=== PATIENT | male | born 1955 | race Caucasian/White ===

== ENCOUNTER 2021-04-13 17:08 | Emergency (ER) | payer MEDICAID ==
--- OUTSIDE RECORDS SUMMARY | 2021-04-13 17:24 | EXTERNAL MEDICAL SUMMARY RPT | Continuity of Care Document ---
:1955 Demographics Phone Unavailable Preferred Language Unknown Marital Status Unknown Zoroastrian Affiliation Unknown Race Unknown Ethnic Group Unknown Author Organization [facility] Address [address] [id number] Phone Allergies Encounters Medications Problems Results
[2021-04-13] MEDS ORDERED: diltiaZEM INJ 5 MG/ML VIAL IVP STA (19:13)
[2021-04-13 19:32] LABS: BASOPHILS # (AUTO) 0.1 10^3/uL (0.0-0.1); BASOPHILS % (AUTO) 1.1 %; EOSINOPHILS # (AUTO) 0.3 10^3/uL (0.0-0.7); EOSINOPHILS % (AUTO) 2.9 %; HCT - HEMATOCRIT 49.2 % (42.0-52.0); HGB - HEMOGLOBIN 16.5 g/dL (14.0-18.0); LYMPHOCYTES # (AUTO) 2.1 10^3/uL (1.5-3.5); LYMPHOCYTES % (AUTO) 21.3 %; MEAN CORPUSCULAR HEMOGLOBIN 31.8 pg (27.0-31.0); MEAN CORPUSCULAR HGB CONC 33.5 g/dL (32.0-36.0); MEAN CORPUSCULAR VOLUME 94.8 fL (80.0-94.0); MEAN PLATELET VOLUME 9.5 fL (7.4-11.4); MONOCYTES # (AUTO) 0.6 10^3/uL (0.0-1.0); NEUTROPHILS # (AUTO) 6.8 10^3/uL (1.5-6.6); NEUTROPHILS % (AUTO) 68.4 %; PLT - PLATELET COUNT 352 10^3/uL (130-450); RED BLOOD COUNT 5.19 10^6/uL (4.70-6.10); RED CELL DISTRIBUTION WIDTH 12.7 % (12.0-15.0); WHITE BLOOD COUNT 9.9 x10^3/uL (4.8-10.8)
[2021-04-13 19:45] LABS: ALBUMIN/GLOBULIN RATIO 1.3 (1.0-2.2); BILIRUBIN,TOTAL 1.4 mg/dL (0.2-1.0); CALCIUM 9.3 mg/dL (8.5-10.3); CREATININE 1.2 mg/dL (0.6-1.2); POTASSIUM 4.1 mmol/L (3.5-5.0); TOTAL PROTEIN 7.2 g/dL (6.7-8.2)
--- NOTE | 2021-04-13 20:06 | XRAY Report ---
PROCEDURE: Chest 1 View X-Ray INDICATIONS: Chest Pain TECHNIQUE: One view of the chest was acquired. COMPARISON: None FINDINGS: Surgical changes and devices: None. Lungs and pleura: No pleural effusions or pneumothorax. Lungs are clear. Mediastinum: Mediastinal contours appear normal. Heart size is top normal. Bones and chest wall: No suspicious bony lesions. Overlying soft tissues appear unremarkable. IMPRESSION: Top normal heart size. No evidence acute pulmonary process. Reviewed by: Huber Dsouza MD on 04/13/2021 8:04 PM PDT Approved by: Huber Dsouza MD on 04/13/2021 8:04 PM PDT Station ID: [id number]
[2021-04-13] MEDS ORDERED: diltiaZEM CD 120 MG CAPSULE PO STA (20:19)
[2021-04-13] MEDS ORDERED: LORazepam 1 MG TABLET PO STA (20:20)
[2021-04-13 22:03] VITALS: BP 154/104
[2021-04-13] MEDS ORDERED: APIXABAN 5 MG TABLET PO STA (22:07)
--- NOTE | 2021-04-13 22:09 | ED Physician Documentation ---
PD HPI DYSPNEA - Stated complaint Stated Complaint: SOA/STUFFINESS - Chief complaint Chief Complaint: Resp - History obtained from History obtained from: Patient - Additional information Additional information: Patient comes emergency department chief complaint of shortness of breath for about 2 weeks. He states that he has not had any chest pain, fever, or chills. He has an occasional dry cough but this is not consistent. No palpitations. The patient states that he has not had anything else associated such as nausea or vomiting. No dizziness. The patient states that the shortness of breath is worse with exertion but that even small movements seem to set off. He states sometimes he will get an episode while just sitting still but if he just takes deep breaths it seems to subside on its own. Patient has a longstanding history of smoking but no formal diagnosis of COPD, because he does not go to the doctor. He states his last cigarette was 2 weeks ago. No other complaints at this time. Review of Systems Ten Systems: 10 systems reviewed and negative Constitutional: reports: Reviewed and negative Eyes: reports: Reviewed and negative Ears: reports: Reviewed and negative Nose: reports: Reviewed and negative Throat: reports: Reviewed and negative Cardiac: reports: Reviewed and negative. denies: Palpitations Respiratory: reports: Dyspnea, Cough GI: reports: Reviewed and negative : reports: Reviewed and negative Skin: reports: Reviewed and negative Musculoskeletal: reports: Reviewed and negative Neurologic: reports: Reviewed and negative Psychiatric: reports: Reviewed and negative Endocrine: reports: Reviewed and negative Immunocompromised: reports: Reviewed and negative PD PAST MEDICAL HISTORY - Past Medical History Past Medical History: No Cardiovascular: None Respiratory: None Musculoskeletal: None - Past Surgical History Past Surgical History: Yes General: Other - Present Medications Home Medications: Ambulatory Orders Medication Instructions Recorded Confirmed Apixaban [Eliquis] 5 mg PO BID #60 tablet 04/13/21 diltiaZEM CD [Cardizem Cd] 240 mg PO DAILY #60 04/13/21 - Allergies Allergies/Adverse Reactions: Allergies Allergy/AdvReac Type Severity Reaction Status Date / Time No Known Drug Allergies Allergy Verified 04/13/21 17:12 - Social History Does the pt smoke?: Yes Smoking Status: Former smoker Does the pt drink ETOH?: Yes ETOH Use: Beer Does the pt have substance abuse?: No - Immunizations Immunizations are current?: Yes PD ED PE NORMAL - Vitals Vital signs reviewed: Yes - General General: Alert and oriented X 3, No acute distress, Well developed/nourished - HEENT HEENT: Atraumatic, PERRL, EOMI, Moist mucous membranes - Neck Neck: Supple, no meningeal sign - Cardiac Cardiac: Other (Tachycardic rate, irregular rhythm, no murmurs.) - Respiratory Respiratory: No respiratory distress, Clear bilaterally - Abdomen Abdomen: Soft, Non tender, Non distended - Derm Derm: Normal color, Warm and dry, No rash - Extremities Extremities: No deformity, No edema, No calf tenderness / cord - Neuro Neuro: Alert and oriented X 3, 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 Nonspecific.) Compare to prior EKG: Old EKG unavailable Computer interpretation: Disagree with computer (No distinct ischemic finding, as there is too much inconsistency in ST segments and any given lead and in multiple leads.) - Labs Labs: Laboratory Tests 04/13/21 04/13/21 04/13/21 19:19 19:19 19:19 WBC 9.9 RBC 5.19 Hgb 16.5 Hct 49.2 MCV 94.8 H MCH 31.8 H MCHC 33.5 RDW 12.7 Plt Count 352 MPV 9.5 Neut # (Auto) 6.8 H Lymph # (Auto) 2.1 [place] # (Auto) 0.6 Eos # (Auto) 0.3 Baso # (Auto) 0.1 Absolute Nucleated RBC 0.00 Nucleated RBC % 0.0 Sodium 136 Potassium 4.1 Chloride 101 Carbon Dioxide 25 Anion Gap 10.0 BUN 21 H Creatinine 1.2 Estimated GFR (MDRD) 61 L Glucose 113 H Calcium 9.3 Total Bilirubin 1.4 H AST 34 ALT 51 Alkaline Phosphatase 76 Troponin I High Sens 64.6 H* B-Natriuretic Peptide Total Protein 7.2 Albumin 4.0 Globulin 3.2 Albumin/Globulin Ratio 1.3 Lipase 20 L 04/13/21 04/13/21 19:19 20:57 WBC RBC Hgb Hct MCV MCH MCHC RDW Plt Count MPV Neut # (Auto) Lymph # (Auto) [place] # (Auto) Eos # (Auto) Baso # (Auto) Absolute Nucleated RBC Nucleated RBC % Sodium Potassium Chloride Carbon Dioxide Anion Gap BUN Creatinine Estimated GFR (MDRD) Glucose Calcium Total Bilirubin AST ALT Alkaline Phosphatase Troponin I High Sens 54.0 H* B-Natriuretic Peptide 1164 H Total Protein Albumin Globulin Albumin/Globulin Ratio Lipase - Rads (name of study) CXR Radiology: Final report received, EMP read indepedently, See rad report (neg) PD MEDICAL DECISION MAKING - ED course Complexity details: reviewed results, re-evaluated patient, considered differential, d/w patient ED course: The patient was found to have a very harsh heart rate, ranging mostly from the 140s to the 160s. He appeared to be in atrial fibrillation with rapid ventricular response, although shortness of breath was really his only complaint and the patient actually looked quite good. He was given a dose of Cardizem 25 mg IV to which she responded very well. He was also given an oral dose of Cardizem. His heart rate did come down into the 90s and while he had occasional bumps up into the lower 100s, he mostly remained below 100 for his heart rate. Laboratory studies were performed and did not surprisingly show an elevated troponin at 64. However, repeat which was done after rate control he been again was found to have dropped down to 54. Patient's BNP was found to be quite elevated but his chest x-ray was negative, and I felt that the elevation BNP was most likely secondary to the effective preload from inadequate throughput, rather than from actual congestive heart failure. The patient reported feeling quite a bit better. His rate remained controlled throughout his stay in the emergency department and I felt that he could go home on oral Cardizem. I have advised him to call primary care first thing the morning and have given him a number of options for this. I have advised him to establish care and so that he can have a full, nonemergent physical appropriate to his gender and age. We have discussed having a low threshold for return, should he experience palpitations, shortness of breath, or chest pain. Departure - Departure Disposition: 01 Home, Self Care Clinical Impression: Atrial fibrillation with RVR Condition: Stable Instructions: Atrial Fibrillation Dc Follow-Up: Nico Rice MD [Provider Admit Priv/Credential] - Mariella Gutierrez MD [Credentialed Staff Provider] - Vicki Oliveira ARNP [Credentialed Staff Provider] - Cecil Randolph MD [Credentialed Staff Provider] - Soledad Monsalve ARNP [Provider Admit Priv/Credential] - Prescriptions: diltiaZEM CD [Cardizem Cd] 240 mg PO DAILY #60 Apixaban [Eliquis] 5 mg PO BID #60 tablet Comments: You were found to be in atrial fibrillation today, as we discussed. You will need to be on both the medicine to control your heart rate and also the blood thinner to keep you from forming clots, as we discussed. It is very important that you follow-up in primary care as soon as possible. We have given you a number of potential options. Please call them first thing in the morning to set up an appointment. Be sure to tell them you were just seen in the emergency department for atrial fibrillation, which is a new diagnosis for you. Please continue your plans to quit smoking. Most likely, with your longstanding history of smoking, you do have some degree of chronic obstructive pulmonary disease, and this is most likely partly responsible for your sense of shortness of breath. There is no evidence of a heart attack today. If you begin noticing that your heart rate is speeding way up again, you will need to return to the emergency department. Discharge Date/Time: 04/13/21 23:08
== END 2021-04-13 23:08 | disposition home or self-care (01) ==
LOC: ED 17:08
DX: I48.91 Unspecified atrial fibrillation (principal); R79.89 Other specified abnormal findings of blood chemistry; Z87.891 Personal history of nicotine dependence
CPT/HCPCS: 36415; 71045; 80053; 83690; 83880; 84484; 85025; 93005; 99284; A9270; J8499

== ENCOUNTER 2021-05-15 13:26 | Outpatient (CLI) | payer MEDICAID ==
[2021-05-15 17:59] LABS: BASOPHILS # (AUTO) 0.1 10^3/uL (0.0-0.1); BASOPHILS % (AUTO) 1.2 %; EOSINOPHILS # (AUTO) 0.2 10^3/uL (0.0-0.7); EOSINOPHILS % (AUTO) 2.5 %; HCT - HEMATOCRIT 47.1 % (42.0-52.0); HGB - HEMOGLOBIN 15.4 g/dL (14.0-18.0); LYMPHOCYTES # (AUTO) 1.4 10^3/uL (1.5-3.5); LYMPHOCYTES % (AUTO) 18.8 %; MEAN CORPUSCULAR HEMOGLOBIN 31.5 pg (27.0-31.0); MEAN CORPUSCULAR HGB CONC 32.7 g/dL (32.0-36.0); MEAN CORPUSCULAR VOLUME 96.3 fL (80.0-94.0); MONOCYTES # (AUTO) 0.5 10^3/uL (0.0-1.0); MONOCYTES % (AUTO) 6.9 %; NEUTROPHILS # (AUTO) 5.3 10^3/uL (1.5-6.6); NEUTROPHILS % (AUTO) 70.3 %; PLT - PLATELET COUNT 336 10^3/uL (130-450); RED BLOOD COUNT 4.89 10^6/uL (4.70-6.10); RED CELL DISTRIBUTION WIDTH 14.4 % (12.0-15.0); WHITE BLOOD COUNT 7.5 x10^3/uL (4.8-10.8)
[2021-05-15 18:22] LABS: ALBUMIN 3.8 g/dL (3.2-5.5); ALBUMIN/GLOBULIN RATIO 1.3 (1.0-2.2); ALKALINE PHOSPHATASE 76 IU/L (42-121); ALT ALANINE AMINOTRANSFERASE 33 IU/L (10-60); AST ASPARTATE AMINOTRANSFERASE 21 IU/L (10-42); BUN - BLOOD UREA NITROGEN 20 mg/dL (6-20); CALCIUM 8.7 mg/dL (8.5-10.3); CARBON DIOXIDE - CO2 25 mmol/L (21-32); CHLORIDE 98 mmol/L (101-111); CHOLESTEROL 180 mg/dL; CREATININE 1.2 mg/dL (0.6-1.2); GFR - MDRD 61 (>89); GLUCOSE 134 mg/dL (70-100); HDL CHOLESTEROL 36 mg/dL; LDL CHOLESTEROL,CALCULATED 120 mg/dL; LDL/HDL RATIO 3.3 (<3.6); POTASSIUM 3.7 mmol/L (3.5-5.0); SODIUM 135 mmol/L (135-145); TOTAL PROTEIN 6.8 g/dL (6.7-8.2); TRIGLYCERIDES 118 mg/dL; VLDL CHOLESTEROL 24 mg/dL
== END 2021-05-15 13:27 | disposition home or self-care (01) ==
LOC: LAB.N 13:26
PROVIDERS: ATTEND Internal Medicine
DX: I11.0 Hypertensive heart disease with heart failure (principal); I50.1 Left ventricular failure, unspecified; Z12.5 Encounter for screening for malignant neoplasm of prostate
CPT/HCPCS: 36415; 80053; 80061; 83721; 83880; 84153; 85025

== ENCOUNTER 2021-06-04 01:06 | Outpatient (CLI) | payer MEDICAID | END 2021-06-04 01:07 | disposition short-term general hospital (02) | LOC: EMS 01:06 | DX: R07.89 Other chest pain (principal); R06.02 Shortness of breath | CPT/HCPCS: A0425; A0427; A0999 ==

== ENCOUNTER 2021-07-13 11:48 | Outpatient (CLI) | payer MEDICAID ==
[2021-07-13 19:10] LABS: CALCIUM 8.9 mg/dL (8.5-10.3); CREATININE 1.4 mg/dL (0.6-1.2); POTASSIUM 4.4 mmol/L (3.5-5.0)
== END 2021-07-13 11:49 | disposition home or self-care (01) ==
LOC: LAB.N 11:48
PROVIDERS: ATTEND Internal Medicine Cardiovascular Disease
DX: I48.19 Other persistent atrial fibrillation (principal)
CPT/HCPCS: 36415; 80048

== ENCOUNTER 2021-12-15 14:39 | Outpatient (CLI) | payer MEDICARE, MEDICAID | END 2021-12-15 14:40 | disposition critical access hospital (66) | LOC: EMS 14:39 | DX: R09.02 Hypoxemia (principal) | CPT/HCPCS: A0425; A0429 ==

== ENCOUNTER 2021-12-15 15:09 | Emergency (ER) | payer MEDICARE, MEDICAID ==
[2021-12-15] MEDS ORDERED: predniSONE 20 MG TABLET PO STA (15:17)
[2021-12-15] MEDS ORDERED: ALBUTEROL 1 PUFF INH STA (15:18)
--- NOTE | 2021-12-15 15:21 | ED Physician Documentation ---
History of Present Illness - Stated complaint Stated Complaint: COPD - History obtained from History obtained from: Patient, EMS - History of Present Illness Timing: Today Pain level max: 0 Pain level now: 0 - Additonal information Additional information: Patient is a 66-year-old male who presents to the emergency department after being sent by the clinic today. He had been seen at [place] emergency department 2 days ago and diagnosed with a COPD exacerbation. He was started on an albuterol inhaler but no other medications. He states he has used it a few times. When he was at the clinic today they could not get the pulse ox to read and so they called 911 to have him brought to the emergency department. Patient has no complaints. He states he feels the same as always. Nothing makes it better or worse. No fevers. No chills. No cough. He states that he quit smoking a few weeks ago. Patient is on Eliquis. Has a history of atrial fibrillation. Review of Systems Constitutional: denies: Fever, Chills Throat: denies: Sore throat Cardiac: denies: Chest pain / pressure Respiratory: reports: Dyspnea, Wheezing. denies: Cough GI: denies: Nausea, Vomiting, Diarrhea Skin: denies: Rash Musculoskeletal: denies: Neck pain, Back pain Neurologic: denies: Headache PD PAST MEDICAL HISTORY - Past Medical History Cardiovascular: None Respiratory: None Musculoskeletal: None - Past Surgical History Past Surgical History: Yes General: Other - Present Medications Home Medications: Ambulatory Orders Medication Instructions Recorded Confirmed Apixaban [Eliquis] 5 mg PO BID #60 tablet 04/13/21 diltiaZEM CD [Cardizem Cd] 240 mg PO DAILY #60 04/13/21 Furosemide [Lasix] 20 mg PO DAILY #7 tablet 12/15/21 predniSONE [Deltasone] 10 mg PO [id number] #42 tab 12/15/21 - Allergies Allergies/Adverse Reactions: Allergies Allergy/AdvReac Type Severity Reaction Status Date / Time No Known Drug Allergies Allergy Verified 12/15/21 15:20 - Social History Does the pt smoke?: Yes Smoking Status: Former smoker Does the pt drink ETOH?: Yes Does the pt have substance abuse?: No - Immunizations Immunizations are current?: Yes PD ED PE NORMAL - Vitals Vital signs reviewed: Yes - General General: Alert and oriented X 3, No acute distress - HEENT HEENT: Moist mucous membranes - Neck Neck: Supple, no meningeal sign - Cardiac Cardiac: RRR - Respiratory Respiratory: Other (Diminished breath sounds and wheezing bilaterally) - Abdomen Abdomen: Soft, Non tender, Non distended - Derm Derm: Normal color, Other (Clubbing of the bilateral hands. Decreased cap refill. Normal pulses) - Extremities Extremities: No edema - Neuro Neuro: Alert and oriented X 3 Results - Vitals Vitals: Vital Signs - 24 hr 12/15/21 12/15/21 12/15/21 15:15 15:30 16:08 Temperature 35.9 C L Heart Rate 118 H 92 97 Respiratory 20 26 H 30 H Rate Blood Pressure 98/76 115/85 H O2 Saturation 95 97 Oxygen O2 Source Nasal cannula - EKG (time done) 1612 Rate: Rate (enter#) (97) Rhythm: Atrial fibrillation [place]: Normal QRS: Normal Ischemia: Normal ST segments - Labs Labs: Laboratory Tests 12/15/21 12/15/21 12/15/21 16:00 16:00 16:00 WBC 6.4 RBC 4.65 L Hgb 15.3 Hct 47.3 MCV 101.7 H MCH 32.9 H MCHC 32.3 RDW 17.0 H Plt Count 260 MPV 9.1 Neut # (Auto) 4.6 Lymph # (Auto) 1.1 L [place] # (Auto) 0.6 Eos # (Auto) 0.1 Baso # (Auto) 0.1 Absolute Nucleated RBC 0.00 Nucleated RBC % 0.0 PT 30.4 H INR 2.7 H APTT 31.4 Sodium 137 Potassium 4.5 Chloride 101 Carbon Dioxide 27 Anion Gap 9.0 BUN 27 H Creatinine 1.4 H Estimated GFR (MDRD) 51 L Glucose 70 Calcium 8.5 Total Bilirubin 1.0 AST 30 ALT 37 Alkaline Phosphatase 91 Total Protein 6.3 L Albumin 3.3 Globulin 3.0 Albumin/Globulin Ratio 1.1 - Rads (name of study) cxr Radiology: Final report received, EMP read contemporaneously, See rad report (Cardiomegaly and pulmonary vascular congestion. Moderate right pleural effusion with atelectasis of right middle and lower lobes. No gross pneumothorax. ) PD MEDICAL DECISION MAKING - ED course Complexity details: reviewed results, re-evaluated patient, considered differential, d/w patient ED course: Patient is a 66-year-old male who presents to the emergency department with a moderate right-sided pleural effusion, atelectasis of the right middle and lower lobes. Does not have a history of similar but did have a pleural effusion noted, large, on chest x-ray at [facility] 2 days ago. He is on Eliquis, not having current respiratory distress, therefore I think it is more practical to have this scheduled as an outpatient to be done with interventional radiology for diagnostic thoracentesis. We will place him on a small amount of Lasix to see if we can decrease the size of the effusion. Patient will need close follow-up with his doctor. Patient is not hypoxic here. 95 to 97% on room air. We will also trial on a short course of steroids. He also will continue the albuterol at home. Patient counseled regarding signs and symptoms for which I believe and urgent re-evaluation would be necessary. Patient with good understanding of and agreement to plan and is comfortable going home at this time This document was made in part using voice recognition software. While efforts are made to proofread this document, sound alike and grammatical errors may occur. Departure - Departure Disposition: 01 Home, Self Care Clinical Impression: Pleural effusion, Moderate COPD (chronic obstructive pulmonary disease) Condition: Good Instructions: ED Effusion Pleural Follow-Up: Luis Jarquin MD [Primary Care Provider] - Within 3 Days Prescriptions: predniSONE [Deltasone] 10 mg PO [id number] #42 tab Furosemide [Lasix] 20 mg PO DAILY #7 tablet Comments: Please continue your current medications at home. Please follow-up with your doctor within 3 days to have a thoracentesis scheduled for your right-sided pleural effusion. They will need to do a diagnostic thoracentesis in order to determine the etiology of the effusion. Return if you worsen. Your prescriptions were sent to [facility] in [place]. Discharge Date/Time: 12/15/21 17:59
[2021-12-15] MEDS ORDERED: SODIUM CHLORIDE 0.9% 1,000 ML IV STA ×2 (15:29)
--- NOTE | 2021-12-15 15:30 | XRAY Report ---
PROCEDURE: Chest 1 View X-Ray INDICATIONS: dyspnea TECHNIQUE: One view of the chest was acquired. COMPARISON: 04/13/2021 FINDINGS: Surgical changes and devices: None. Lungs and pleura: Moderate right pleural effusion is seen with atelectasis of right middle and lower lobes. Pulmonary vascular congestion is seen. Mild pulmonary edema is also noted. No gross pneumothor ax. Mediastinum: Mediastinal contours appear normal. Heart size is markedly enlarged. Bones and chest wall: No suspicious bony lesions. Overlying soft tissues appear unremarkable. IMPRESSION: Cardiomegaly and pulmonary vascular congestion. Moderate right pleural effusion with atelectasis of r ight middle and lower lobes. No gross pneumothorax. Reviewed by: Adriano Chen MD on 12/15/2021 3:29 PM PST Approved by: Adriano Chen MD on 12/15/2021 3:29 PM PST Station ID: [id number]
[2021-12-15 16:08] LABS: BASOPHILS # (AUTO) 0.1 10^3/uL (0.0-0.1); BASOPHILS % (AUTO) 1.3 %; EOSINOPHILS # (AUTO) 0.1 10^3/uL (0.0-0.7); EOSINOPHILS % (AUTO) 1.9 %; HCT - HEMATOCRIT 47.3 % (42.0-52.0); HGB - HEMOGLOBIN 15.3 g/dL (14.0-18.0); LYMPHOCYTES # (AUTO) 1.1 10^3/uL (1.5-3.5); LYMPHOCYTES % (AUTO) 16.5 %; MEAN CORPUSCULAR HEMOGLOBIN 32.9 pg (27.0-31.0); MEAN CORPUSCULAR HGB CONC 32.3 g/dL (32.0-36.0); MEAN CORPUSCULAR VOLUME 101.7 fL (80.0-94.0); MEAN PLATELET VOLUME 9.1 fL (7.4-11.4); MONOCYTES # (AUTO) 0.6 10^3/uL (0.0-1.0); MONOCYTES % (AUTO) 8.6 %; NEUTROPHILS # (AUTO) 4.6 10^3/uL (1.5-6.6); NEUTROPHILS % (AUTO) 71.5 %; PLT - PLATELET COUNT 260 10^3/uL (130-450); RED BLOOD COUNT 4.65 10^6/uL (4.70-6.10); WHITE BLOOD COUNT 6.4 x10^3/uL (4.8-10.8)
[2021-12-15 16:13] LABS: INR 2.7 (0.8-1.2); PT - PROTHROMBIN TIME 30.4 secs (9.9-12.6)
[2021-12-15 16:18] LABS: ALBUMIN 3.3 g/dL (3.2-5.5); ALBUMIN/GLOBULIN RATIO 1.1 (1.0-2.2); CALCIUM 8.5 mg/dL (8.5-10.3); CREATININE 1.4 mg/dL (0.6-1.2); POTASSIUM 4.5 mmol/L (3.5-5.0); TOTAL PROTEIN 6.3 g/dL (6.7-8.2)
[2021-12-15 16:20] VITALS: BP 115/85
[2021-12-15 16:20] LABS: PARTIAL THROMBOPLASTIN TIME 31.4 secs (24.9-33.3)
== END 2021-12-15 17:59 | disposition home or self-care (01) ==
LOC: EDUNIT# → EDSEX → ED 15:09
DX: J44.9 Chronic obstructive pulmonary disease, unspecified (principal); J90 Pleural effusion, not elsewhere classified; J98.11 Atelectasis; I48.91 Unspecified atrial fibrillation; Z79.01 Long term (current) use of anticoagulants; Z87.891 Personal history of nicotine dependence; I51.7 Cardiomegaly
CPT/HCPCS: 36415; 71045; 80053; 85025; 85610; 85730; 93005; 94640; 94664; 99283; 99284; J7512

== ENCOUNTER 2021-12-20 11:28 | Outpatient (CLI) | payer MEDICARE, MEDICAID ==
[~2021-12-20 11:28] MED LIST: lidocaine 1% 20 ML MDV ONE
[2021-12-20 11:56] LABS: INR 2.1 (0.8-1.2); PT - PROTHROMBIN TIME 23.6 secs (9.9-12.6)
[2021-12-20 12:03] LABS: PARTIAL THROMBOPLASTIN TIME 35.2 secs (24.9-33.3)
== END 2021-12-20 11:29 | disposition home or self-care (01) ==
LOC: LAB 11:28
PROVIDERS: ATTEND Internal Medicine
DX: J90 Pleural effusion, not elsewhere classified (principal)
CPT/HCPCS: 36415; 85610; 85730

== ENCOUNTER 2021-12-22 09:05 | Outpatient (CLI) | payer MEDICARE, MEDICAID ==
[2021-12-22 09:49] LABS: INR 1.6 (0.8-1.2); PT - PROTHROMBIN TIME 18.3 secs (9.9-12.6)
== END 2021-12-22 09:06 | disposition home or self-care (01) ==
LOC: DI 09:05
PROVIDERS: ATTEND Internal Medicine
DX: J90 Pleural effusion, not elsewhere classified (principal)
CPT/HCPCS: 36415; 85610; 85730

== ENCOUNTER 2021-12-25 09:09 | Outpatient (CLI) | payer MEDICARE, MEDICAID ==
[2021-12-25 09:52] LABS: PT - PROTHROMBIN TIME 22.1 secs (9.9-12.6)
[2021-12-25 09:59] LABS: PARTIAL THROMBOPLASTIN TIME 32.5 secs (24.9-33.3)
== END 2021-12-25 09:10 | disposition home or self-care (01) ==
LOC: LAB 09:09
PROVIDERS: ATTEND Internal Medicine
DX: J90 Pleural effusion, not elsewhere classified (principal)
CPT/HCPCS: 36415; 85610; 85730

== ENCOUNTER 2021-12-27 08:51 | Outpatient (CLI) | payer MEDICARE, MEDICAID ==
[2021-12-27 09:09] LABS: INR 1.6 (0.8-1.2); PT - PROTHROMBIN TIME 17.7 secs (9.9-12.6)
[2021-12-27 09:16] LABS: PARTIAL THROMBOPLASTIN TIME 33.8 secs (24.9-33.3)
[2021-12-27] MEDS ORDERED: lidocaine 1% 20 ML MDV ONE (09:17)
--- NOTE | 2021-12-27 10:25 | XRAY Report ---
PROCEDURE: Post Thoracentesis 1V CXR INDICATIONS: POST THORACENTESIS TECHNIQUE: One view of the chest was acquired. COMPARISON: 12/15/2019 FINDINGS: Surgical changes and devices: None. Lungs and pleura: Patient is status post right-sided thoracentesis with markedly decreased amount of right-sided pleural effusion. Small residual right pleural effusion with right basilar atelectasis is . No significant left-sided pleural effusion. No gross pneumothorax. Mediastinum: Mediastinal contours appear normal. Heart size is enlarged. Bones and chest wall: No suspicious bony lesions. Old healed right proximal humeral shaft fracture i s seen. Overlying soft tissues appear unremarkable. IMPRESSION: Post right thoracentesis with small residual right pleural effusion. No gross pneumothorax. Reviewed by: Adriano Chen MD on 12/27/2021 10:24 AM [facility] [[email or web address]] Approved by: Adriano Chen MD on 12/27/2021 10:24 AM [facility] [[email or web address]] Station ID: [id number]
--- NOTE | 2021-12-27 10:49 | Ultrasound Report ---
PROCEDURE: Thoracentesis Puncture INDICATIONS: RIGHT PLEURAL EFFUSION, HYPOXEMIA TECHNIQUE: The indications, alternatives, benefits, risks, and complications of the procedure were explained to the patient. Written informed consent was obtained and placed in the chart. The chest was examined sonographically, and an appropriate site was chosen for thoracentesis. The skin was prepared and rad ped in the usual sterile fashion, and 1% lidocaine was infiltrated from the skin down through the ple ural surface. A 19-gauge catheter-covered needle was then introduced into the pleural space, the cat heter was advanced and the needle was withdrawn, and thereafter pleural fluid was aspirated. The cat heter was then removed and a dressing was applied. COMPARISON: None. FINDINGS: Access site: Right hemithorax. Needle: One-Step centesis catheter with introducer needle. Fluid volume and description: 2.56 L of fairly clear yellowish fluid. Fluid sent for diagnostic testing: Awaiting for clinician's instructions. Medications: 1% lidocaine for local anaesthesia. Complications: None; post-procedural chest radiograph is pending to assess for pneumothorax. IMPRESSION: Successful ultrasound-guided thoracentesis. Reviewed by: Adriano Chen MD on 12/27/2021 10:48 AM [facility] Approved by: Adriano Chen MD on 12/27/2021 10:48 AM PST Station ID: [id number]
[2021-12-27] MEDS ORDERED: lidocaine 1% 20 ML MDV SUBQ ONE (11:12)
== END 2021-12-27 08:52 | disposition home or self-care (01) ==
LOC: DI 08:51
PROVIDERS: ATTEND Internal Medicine
DX: J90 Pleural effusion, not elsewhere classified (principal); R09.02 Hypoxemia; I48.91 Unspecified atrial fibrillation
CPT/HCPCS: 32555; 36415; 85610; 85730

== ENCOUNTER 2022-01-05 11:31 | Outpatient (CLI) | payer MEDICARE, MEDICAID ==
[2022-01-05 19:13] LABS: ALBUMIN 3.4 g/dL (3.2-5.5); ALBUMIN/GLOBULIN RATIO 1.1 (1.0-2.2); CALCIUM 8.5 mg/dL (8.5-10.3); CREATININE 1.1 mg/dL (0.6-1.2); POTASSIUM 4.3 mmol/L (3.5-5.0); TOTAL PROTEIN 6.4 g/dL (6.7-8.2)
== END 2022-01-05 11:32 | disposition home or self-care (01) ==
LOC: LAB.N 11:31
PROVIDERS: ATTEND Internal Medicine
DX: I50.1 Left ventricular failure, unspecified (principal)
CPT/HCPCS: 36415; 80053

== ENCOUNTER 2022-01-29 12:36 | Outpatient (CLI) | payer MEDICAID, MEDICARE, OTHER ==
[2022-01-29 18:50] LABS: ALBUMIN/GLOBULIN RATIO 1.1 (1.0-2.2); BILIRUBIN,TOTAL 0.6 mg/dL (0.2-1.0); CALCIUM 9.6 mg/dL (8.5-10.3); CREATININE 1.1 mg/dL (0.6-1.2); POTASSIUM 4.7 mmol/L (3.5-5.0); TOTAL PROTEIN 7.6 g/dL (6.7-8.2)
== END 2022-01-29 12:37 | disposition home or self-care (01) ==
LOC: LAB.N 12:36
PROVIDERS: ATTEND Internal Medicine
DX: I50.1 Left ventricular failure, unspecified (principal); J90 Pleural effusion, not elsewhere classified; R94.30 Abnormal result of cardiovascular function study, unspecified
CPT/HCPCS: 36415; 80053; 83880

== ENCOUNTER 2022-04-03 14:38 | Outpatient (CLI) | payer OTHER ==
[2022-04-03 17:47] LABS: CALCIUM 9.4 mg/dL (8.5-10.3); CREATININE 1.1 mg/dL (0.6-1.2); POTASSIUM 4.4 mmol/L (3.5-5.0)
[2022-04-03 18:08] LABS: THYROID STIMULATING HORMONE 3.11 uIU/mL (0.34-5.60)
[2022-04-03 18:14] LABS: BASOPHILS % (AUTO) 0.4 %; EOSINOPHILS # (AUTO) 0.3 10^3/uL (0.0-0.7); EOSINOPHILS % (AUTO) 2.3 %; HCT - HEMATOCRIT 46.9 % (42.0-52.0); HGB - HEMOGLOBIN 15.3 g/dL (14.0-18.0); LYMPHOCYTES # (AUTO) 1.2 10^3/uL (1.5-3.5); MEAN CORPUSCULAR HEMOGLOBIN 32.3 pg (27.0-31.0); MEAN CORPUSCULAR HGB CONC 32.6 g/dL (32.0-36.0); MEAN CORPUSCULAR VOLUME 99.2 fL (80.0-94.0); MEAN PLATELET VOLUME 9.7 fL (7.4-11.4); MONOCYTES # (AUTO) 1.1 10^3/uL (0.0-1.0); MONOCYTES % (AUTO) 9.8 %; NEUTROPHILS # (AUTO) 8.2 10^3/uL (1.5-6.6); NEUTROPHILS % (AUTO) 76.2 %; PLT - PLATELET COUNT 242 10^3/uL (130-450); RED BLOOD COUNT 4.73 10^6/uL (4.70-6.10); RED CELL DISTRIBUTION WIDTH 16.1 % (12.0-15.0); WHITE BLOOD COUNT 10.8 x10^3/uL (4.8-10.8)
== END 2022-04-03 14:39 | disposition home or self-care (01) ==
LOC: LAB.N 14:38
PROVIDERS: ATTEND Internal Medicine Cardiovascular Disease
DX: I48.19 Other persistent atrial fibrillation (principal); Z79.01 Long term (current) use of anticoagulants; R06.00 Dyspnea, unspecified
CPT/HCPCS: 36415; 80048; 83880; 84443; 85025

== ENCOUNTER 2022-04-05 10:37 | Outpatient (CLI) | payer MEDICARE, MEDICAID ==
--- NOTE | 2022-04-05 13:28 | XRAY Report ---
PROCEDURE: Chest 2 View X-Ray INDICATIONS: COUGH, SHORTNESS OF BREATH TECHNIQUE: 2 view(s) of the chest. COMPARISON: 12/15/2021. FINDINGS: Surgical changes and devices: None. Lungs and pleura: Chronic of edematous changes are seen. Small bibasilar atelectasis is noted. Trace left pleural effusion is seen with blunting of left costophrenic angle. No gross pneumothorax. Mediastinum: Mediastinal contours are normal. Heart size is enlarged. Bones and chest wall: No suspicious bony abnormalities. Soft tissues appear unremarkable. IMPRESSION: Cardiomegaly and mild congestion. Trace left pleural effusion and bibasilar dependent at electasis. COPD. No definite focal infiltrate. Reviewed by: Adriano Chen MD on 04/05/2022 1:26 PM PDT Approved by: Adriano Chen MD on 04/05/2022 1:26 PM PDT Station ID: [id number]
== END 2022-04-05 10:38 | disposition home or self-care (01) ==
LOC: LAB.N 10:37 → DI.N 10:38
PROVIDERS: ATTEND Internal Medicine Cardiovascular Disease
DX: J90 Pleural effusion, not elsewhere classified (principal); I51.7 Cardiomegaly; J44.9 Chronic obstructive pulmonary disease, unspecified; J98.11 Atelectasis; R09.89 Other specified symptoms and signs involving the circulatory and respiratory systems; I50.20 Unspecified systolic (congestive) heart failure; R05.9 Cough, unspecified; Z20.822 Contact with and (suspected) exposure to COVID-19
CPT/HCPCS: 36415; 80048

== ENCOUNTER 2022-04-05 11:05 | Outpatient (CLI) | payer OTHER ==
[2022-04-05 17:51] LABS: CALCIUM 9.6 mg/dL (8.5-10.3); CREATININE 1.1 mg/dL (0.6-1.2); POTASSIUM 4.4 mmol/L (3.5-5.0)
== END 2022-04-05 11:06 | disposition home or self-care (01) ==
LOC: LAB.N 11:05
PROVIDERS: ATTEND Internal Medicine Cardiovascular Disease
DX: I50.20 Unspecified systolic (congestive) heart failure (principal); R05.9 Cough, unspecified; Z20.822 Contact with and (suspected) exposure to COVID-19
CPT/HCPCS: 36415; 80048